=== PATIENT | male | born 1975 | race Caucasian/White ===

== ENCOUNTER 2019-08-04 16:58 | Day surgery (SDC) | payer OTHER ==
[2019-08-04] MEDS ORDERED: HYDROmorphone 1 MG/ML Syringe IVPUSH STA (19:20)
[2019-08-04] MEDS ORDERED: Ondansetron 4 MG/2 ML SDV IVPUSH ONE ×2 (19:20→22:14)
--- NOTE | 2019-08-04 19:25 | EDM.PDOC ---
ED HPI GENERAL MEDICAL PROBLEM - General Chief Complaint: Gastrointestinal Problem Stated Complaint: LOW ABDOMINAL PAIN SENT FROM [facility] Seen by Provider: 08/04/19 19:03 Source of Information: Reports: Patient, Family () History Limitations: Reports: No Limitations - History of Present Illness INITIAL COMMENTS - FREE TEXT/NARRATIVE: Mr. Tyson is a very pleasant 44-year-old man with no significant past medical history, who states that he woke around 01:00 this morning with right lower quadrant pain. He states that it initially felt like "gas" however, over the course of the day, the pain has progressively gotten worse, and is stabbing in character. The pain is made worse with virtually any movement, including if I jiggle his gurney. He states that he feels best if he lies in a prone position. He states that his urination feels "different", but he denies dysuria , per se, and he denies urinary frequency or urgency. He states that he had nausea and emesis at 01:00, but none since. 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 He states that he has felt lightheaded when upright since 01:00 this morning, but not if he is supine. No recent fever, and the patient is afebrile here in the ED. No recent constipation or diarrhea. No prior similar symptoms. The patient states that he went to the [facility], where a CBC and CMP were obtained. The patient's CBC was completely normal. His CMP was remarkable for blood glucose elevated at 150, and AST slightly elevated at 57, with an ALT slightly elevated at 91, with the remainder of the CMP being unremarkable. The patient was then sent to the ED for further evaluation. The patient states that he took some ibuprofen today, which did not help. The patient's last oral solid food was around 10:00 this morning. The patient does not have a PCP. Right Lower Abdominal Pain Score (Numeric/FACES): 9 - Related Data Allergies Allergy/AdvReac Type Severity Reaction Status Date / Time No Known Allergies Allergy Verified 08/04/19 17:10 Home Meds: Home Meds . [No Known Home Meds] 08/04/19 [History] Past Medical History - Past Surgical History HEENT Surgical History: Reports: Oral Surgery (3 wisdom teeth extracted) Neurological Surgical History: Reports: C-Spine (C5-C6 ACDF) Social & Family History - Tobacco Use Smoking Status *Q: Former Smoker Tobacco Use Within Last Twelve Months: Smokeless Tobacco (chews 1 can/day) Years of Tobacco use: 22 Packs/Tins Daily: 1 Month/Year Tobacco Last Used: Quit 2013 - Caffeine Use Caffeine Use: Reports: Coffee - Alcohol Use Alcohol Use History: Yes Alcohol Use Frequency: Socially - Recreational Drug Use Recreational Drug Use: No - Living Situation & Occupation Living situation: Reports: , with Spouse, with Family (2 kids) Occupation: Employed ([employer]) ED ROS GENERAL - Review of Systems Review Of Systems: ROS reveals no pertinent complaints other than HPI. ED EXAM, GI/ABD - Physical Exam Exam: See Below Exam Limited By: No Limitations General Appearance: Alert, WD/WN, No Apparent Distress Eyes: Bilateral: Normal Appearance, EOMI Ears: Normal External Exam, Hearing Grossly Normal Nose: Normal Inspection Throat/Mouth: Normal Inspection, Normal Lips, Normal Voice, No Airway Compromise Head: Atraumatic, Normocephalic Neck: Normal Inspection, Full Range of Motion Respiratory/Chest: No Respiratory Distress, Lungs Clear, Normal Breath Sounds, No Accessory Muscle Use Cardiovascular: Normal Peripheral Pulses, No Edema, No Gallop, No JVD, No Murmur , No Rub, Tachycardia (regular) GI/Abdominal Exam: Soft, No Organomegaly, No Distention, No Abnormal Bruit, No Mass, Tender (right lower quadrant only. Nontender elsewhere, however, Rovsing sign is present.), Abnormal Bowel Sounds (diminished/rare) (Male) Exam: Deferred Rectal (Males) Exam: Deferred Back Exam: Normal Inspection, Full Range of Motion, CVA Tenderness (R) (mild; percussion primarily induces pain in the right lower quadrant). No: CVA Tenderness (L) Extremities: Normal Inspection, Normal Range of Motion, No Pedal Edema, Normal Capillary Refill Neurological: Alert, Oriented, Normal Cognition, No Motor/Sensory Deficits Psychiatric: Normal Affect Skin Exam: Warm, Dry, Intact, Normal Color, No Rash Course - Vital Signs Last Recorded V/S: Last Vital Signs Temp 37.0 C 08/04/19 17:08 Pulse 117 H 08/04/19 17:08 Resp 20 08/04/19 17:08 BP 136/96 H 08/04/19 17:08 Pulse Ox 95 08/04/19 17:08 - Orders/Labs/Meds Orders: Active Orders 24 hr Category Date Time Status Peripheral IV Care [RC] . DIRECTED Care 08/04/19 19:00 Active Sodium Chloride 0.9% [Normal Saline] 1,000 ml Med 08/04/19 19:30 Active IV ASDIRECTED Sodium Chloride 0.9% [Saline Flush] Med 08/04/19 19:30 Active 10 ml FLUSH ASDIRECTED Medication Orders Sodium Chloride (Normal Saline) 1,000 mls @ 150 mls/hr IV ASDIRECTED CIELO Last Admin: 08/04/19 19:33 Dose: 150 mls/hr Sodium Chloride (Saline Flush) 10 ml FLUSH ASDIRECTED [facility]O Last Admin: 08/04/19 20:40 Dose: 10 ml Labs: Laboratory Tests 08/04/19 Range/Units 19:37 Urine Color Yellow (Yellow) Urine Appearance Clear (Clear) Urine pH 6.0 (5.0-8.0) Ur Specific [place] 1.025 (1.005-1.030) Urine Protein Negative (Negative) Urine Glucose (UA) Negative (Negative) Urine Ketones Negative (Negative) Urine Occult Blood Negative (Negative) Urine Nitrite Negative (Negative) Urine Bilirubin Negative (Negative) Urine Urobilinogen 0.2 (0.2-1.0) Ur Leukocyte Esterase Negative (Negative) Urine RBC 0-5 (0-5) /hpf Urine WBC 0-5 (0-5) /hpf Ur Squamous Epith Cells 0-5 (0-5) /hpf Urine Bacteria Occasional (FEW) /hpf Urine Mucus Moderate H (FEW) /hpf Meds: Medications Generic Name Dose Route Start Last Admin Trade Name Freq PRN Reason Stop Dose Admin Sodium Chloride 1,000 mls @ 150 mls/hr 08/04/19 19:30 08/04/19 19:33 Normal Saline IV 150 mls/hr ASDIRECTED CIELO Administration Sodium Chloride 10 ml 08/04/19 19:30 08/04/19 20:40 Saline Flush FLUSH 10 ml ASDIRECTED CIELO Administration Discontinued Medications Generic Name Dose Route Start Last Admin Trade Name Freq PRN Reason Stop Dose Admin Diatrizoate Meglum/Diatrizoate Sod 120 ml 08/04/19 19:28 08/04/19 20:40 Gastrografin 37% PO 08/04/19 19:29 120 ml ONETIME ONE Administration Hydromorphone HCl 1 mg 08/04/19 19:20 08/04/19 19:34 Dilaudid IVPUSH 08/04/19 19:21 1 mg ONETIME STA Administration Hydromorphone HCl 1 mg 08/04/19 21:30 08/04/19 21:39 Dilaudid IVPUSH 08/04/19 21:31 1 mg ONETIME ONE Administration Ertapenem 1 gm/ Sodium 50 mls @ 100 mls/hr 08/04/19 21:25 08/04/19 21:39 Chloride IV 08/04/19 21:54 100 mls/hr ONETIME STA Administration Iopamidol 100 ml 08/04/19 19:28 08/04/19 20:40 Isovue-300 (61%) IVPUSH 08/04/19 19:29 100 ml ONETIME ONE Administration Ondansetron HCl 4 mg 08/04/19 19:20 08/04/19 19:34 Zofran IVPUSH 08/04/19 19:21 4 mg ONETIME ONE Administration Ondansetron HCl 4 mg 08/04/19 22:14 08/04/19 22:18 Zofran IVPUSH 08/04/19 22:15 4 mg ONETIME ONE Administration - Re-Assessments/Exams Free Text/Narrative Re-Assessment/Exam: 08/04/19 19:21 The patient's history is somewhat ambiguous, but his physical exam is very compelling for appendicitis. The triage nurse ordered a repeat CBC and CMP, but because the patient had both drawn at the [facility] just prior to coming to the ED, and I have those results, I have canceled those orders. I added a urinalysis; I doubt this is a UTI, but I just want to be sure, and a CT of his abdomen and pelvis with oral and IV contrast. In the meantime, the patient will be given Dilaudid, Zofran, and IV fluid. 08/04/19 21:19 CT of the abdomen and pelvis with oral and IV contrast is read by Dr. Vernon as: 1. Appendix is seen and measured at the upper limits of normal in size but at this point shows no surrounding inflammatory change. Current findings could be normal or represent very early appendicitis. Close clinical follow-up is recommended with consideration for repeat white count in 12 hours. 2. Contrast within the distal esophagus compatible with reflux. 3. No additional abnormality is seen on CT study of the abdomen and pelvis. 08/04/19 21:[address] Lyon at 21:22. He would like me to give the patient 1 g of Invanz, then place him into observation. The patient is to be kept nothing by mouth. I will order IV fluid, some Dilaudid as needed, and Zofran as needed. Dr. Lyon will see the patient in the morning, for consideration for appendectomy. 08/04/19 21:29 The above recommendation was discussed with the patient and his . He is agreeable to coming in. Departure - Departure Time of Disposition: 21:30 Disposition: Refer to Observation Condition: Fair Clinical Impression: Acute appendicitis - Discharge Information *PRESCRIPTION DRUG MONITORING PROGRAM REVIEWED*: Not Applicable *COPY OF PRESCRIPTION DRUG MONITORING REPORT IN PATIENT SKY: Not Applicable - My Orders Last 24 Hours: My Active Orders 08/04/19 19:00 Peripheral IV Care [RC] . DIRECTED 08/04/19 19:30 Sodium Chloride 0.9% [Normal Saline] 1,000 ml IV ASDIRECTED Sodium Chloride 0.9% [Saline Flush] 10 ml FLUSH ASDIRECTED - Assessment/Plan Last 24 Hours: My Active Orders 08/04/19 19:00 Peripheral IV Care [RC] . DIRECTED 08/04/19 19:30 Sodium Chloride 0.9% [Normal Saline] 1,000 ml IV ASDIRECTED Sodium Chloride 0.9% [Saline Flush] 10 ml FLUSH ASDIRECTED
[2019-08-04] MEDS ORDERED: Diatrizoate Meglumine/Diatrizoate Sodium 37% 120 ML Bottle PO ONE (19:28)
[2019-08-04] MEDS ORDERED: Iopamidol 612 MG/ML 100 ML Bottle IVPUSH ONE (19:28)
[2019-08-04] MEDS ORDERED: Sodium Chloride 0.9% 10 ML Syringe FLUSH SCH (19:30)
[2019-08-04] MEDS: Sodium Chloride 0.9% 1,000 ML IV SCH (19:33)
--- NOTE | 2019-08-04 21:11 | CT ---
CT abdomen and pelvis Technique: Multiple axial sections were obtained from above the dome of the diaphragm inferiorly through the pubic symphysis. Intravenous and oral contrast was utilized. Delayed images were also obtained through the bladder. Comparison: No previous abdominal imaging. Findings: Visualized portions of the lung bases show nothing acute. Liver shows mild fatty infiltration but no focal abnormality is otherwise seen. Contrast is noted within the distal esophagus compatible with reflux. Spleen appears normal in size. Pancreas is within normal limits. Kidneys show symmetric contrast enhancement without hydronephrosis or mass. Adrenal glands show no nodule. Gallbladder contains no calcified gallstones. Aorta shows atherosclerotic calcification which continues into the iliac vessels without aneurysm. No retroperitoneal adenopathy or mesenteric abnormalities are seen. No pelvic mass or adenopathy is seen. Appendix is seen and appears at the upper limits of normal in size but shows no surrounding inflammatory change to indicate definite appendicitis. Other portions of the abdomen and pelvis show no free fluid or inflammatory change. Delayed images shows contrast within the bladder. Bone window settings were reviewed which appear within normal limits for the patient's age. Impression: 1. Appendix is seen and measures at the upper limits of normal in size but at this point shows no surrounding inflammatory change. Current findings could be normal or represent very early appendicitis. Close clinical follow-up is recommended with consideration for repeat white blood count in 12 hours. 2. Contrast within the distal esophagus compatible with reflux. 3. No additional abnormality is seen on CT study of the abdomen and pelvis. Diagnostic code #3
[2019-08-04] MEDS ORDERED: Ertapenem 1 GM in Sodium Chloride 0.9% 50 ML IV STA (21:25)
[2019-08-04] MEDS ORDERED: HYDROmorphone 1 MG/ML Syringe IVPUSH ONE (21:30)
[2019-08-04] MEDS ORDERED: Ondansetron 4 MG/2 ML SDV IVPUSH PRN (23:20)
[2019-08-05] MEDS: HYDROmorphone 1 MG/ML Syringe IVPUSH PRN ×4 (00:32→07:22)
[2019-08-05] MEDS: Sodium Chloride 0.9% 1,000 ML IV SCH (02:41)
[2019-08-05] MEDS ORDERED: Lidocaine 1% 30 ML SDV ONE (07:39)
--- NOTE | 2019-08-05 07:40 | PCM.HP.2 ---
H&P History of Present Illness - General Date of Service: 08/05/19 Admit Problem/Dx: Admission Diagnosis/Problem Admission Diagnosis/Problem Appendicitis Source of Information: Patient History Limitations: Reports: No Limitations - History of Present Illness Onset of Symptoms: Reports: Gradual Symptom Onset Date: 08/03/19 Duration of Symptoms: Reports: Day(s): (2), Getting Worse Location: Reports: Abdomen (RLQ) Quality: Reports: Sharp Severity: Severe Improves with: Reports: None Worsens with: Reports: None Associated Symptoms: Reports: Loss of Appetite, Nausea/Vomiting Right Lower Abdominal Pain Score (Numeric/FACES): 9 - Related Data Allergies/Adverse Reactions: Allergies Allergy/AdvReac Type Severity Reaction Status Date / Time No Known Allergies Allergy Verified 08/04/19 17:10 Home Medications: Home Meds . [No Known Home Meds] 08/04/19 [History] Past Medical History HEENT History: Reports: Other (See Below) Other HEENT History: Wears glasses for driving only Musculoskeletal History: Reports: Arthritis, Other (See Below) Other Musculoskeletal History: To the area where the C5-C66 cervical fusion is Neurological History: Reports: None - Infectious Disease History Infectious Disease History: Reports: Chicken Pox - Past Surgical History HEENT Surgical History: Reports: Oral Surgery Neurological Surgical History: Reports: C-Spine, Other (See Below) Other Neurological Surgeries/Procedures: C 5-6 cervical fusion Musculoskeletal Surgical History: Reports: Other (See Below) Other Musculoskeletal Surgeries/Procedures:: C 5 and C6 cervical Fusion Social & Family History - Family History Family Medical History: Noncontributory - Tobacco Use Smoking Status *Q: Never Smoker Years of Tobacco use: 22 Packs/Tins Daily: 1 Month/Year Tobacco Last Used: Quit 2013 Second Hand Smoke Exposure: No - Caffeine Use Caffeine Use: Reports: Energy Drinks - Recreational Drug Use Recreational Drug Use: No - Living Situation & Occupation Living situation: Reports: , with Spouse, with Family (2 kids) Occupation: Employed ([employer]) H&P Review of Systems - Review of Systems: Review Of Systems: See Below General: Reports: Chills, Decreased Appetite HEENT: Reports: No Symptoms Pulmonary: Reports: No Symptoms Cardiovascular: Reports: No Symptoms Gastrointestinal: Reports: Abdominal Pain, Nausea, Vomiting Genitourinary: Reports: No Symptoms Musculoskeletal: Reports: No Symptoms Skin: Reports: No Symptoms Psychiatric: Reports: No Symptoms Neurological: Reports: No Symptoms Hematologic/Lymphatic: Reports: No Symptoms Immunologic: Reports: No Symptoms Exam - Exam Exam: See Below - Vital Signs Vital Signs: Last Vital Signs Temp 98.1 F 08/05/19 07:21 Pulse 96 08/05/19 07:21 Resp 14 08/05/19 07:21 BP 170/88 H 08/05/19 07:21 Pulse Ox 100 08/05/19 07:21 Weight: 81.692 kg - Exam General: Alert, Oriented, Cooperative, Moderate Distress HEENT: Conjunctiva Clear Lungs: Clear to Auscultation, Normal Respiratory Effort Cardiovascular: Regular Rate, Regular Rhythm, Normal S1, Normal S2 GI/Abdominal Exam: Soft, No Organomegaly, No Distention, No Abnormal Bruit, Tender (RLQ), Other (small left groin hernia, non-tender, reducible. No right sided hernias) - Patient Data Lab Results Last 24 hrs: Laboratory Results - last 24 hr 08/04/19 Range/Units 19:37 Urine Color Yellow (Yellow) Urine Appearance Clear (Clear) Urine pH 6.0 (5.0-8.0) Ur Specific [place] 1.025 (1.005-1.030) Urine Protein Negative (Negative) Urine Glucose (UA) Negative (Negative) Urine Ketones Negative (Negative) Urine Occult Blood Negative (Negative) Urine Nitrite Negative (Negative) Urine Bilirubin Negative (Negative) Urine Urobilinogen 0.2 (0.2-1.0) Ur Leukocyte Esterase Negative (Negative) Urine RBC 0-5 (0-5) /hpf Urine WBC 0-5 (0-5) /hpf Ur Squamous Epith Cells 0-5 (0-5) /hpf Urine Bacteria Occasional (FEW) /hpf Urine Mucus Moderate H (FEW) /hpf Problem List Initiated/Reviewed/Updated: No Orders Last 24hrs: Active Orders 24 hr Category Date Time Status Admission Status [Patient Status] [ADT] Routine ADT 08/04/19 22:07 Active Peripheral IV Care [RC] Q2H Care 08/04/19 19:00 Active Up ad Maeve [RC] BID Care 08/04/19 23:18 Active NPO After Midnight [Nothing per Oral After Midnight Diet 08/05/19 Breakfast Active Diet] [DIET] HYDROmorphone [Dilaudid] Med 08/04/19 23:19 Active 1 mg IVPUSH Q2H PRN Ondansetron [Zofran] Med 08/04/19 23:20 Active 4 mg IVPUSH Q6H PRN Sodium Chloride 0.9% [Normal Saline] 1,000 ml Med 08/04/19 19:30 Active IV ASDIRECTED Sodium Chloride 0.9% [Saline Flush] Med 08/04/19 19:30 Active 10 ml FLUSH ASDIRECTED Schedule Procedure [COMM] Stat Oth 08/05/19 07:30 Ordered Code Status [Resuscitation Status] Routine Resus Stat 08/04/19 23:19 Ordered Medication Orders Hydromorphone HCl (Dilaudid) 1 mg IVPUSH Q2H PRN PRN Reason: Pain Last Admin: 08/05/19 07:22 Dose: 1 mg Admin: 08/05/19 04:43 Dose: 1 mg Admin: 08/05/19 02:39 Dose: 1 mg Admin: 08/05/19 00:32 Dose: 1 mg Sodium Chloride (Normal Saline) 1,000 mls @ 150 mls/hr IV ASDIRECTED [facility] Last Admin: 08/05/19 02:41 Dose: 150 mls/hr Infusion: 08/05/19 02:14 Dose: 150 mls/hr Admin: 08/04/19 19:33 Dose: 150 mls/hr Ondansetron HCl (Zofran) 4 mg IVPUSH Q6H PRN PRN Reason: Nausea Last Admin: 08/05/19 07:22 Dose: 4 mg Sodium Chloride (Saline Flush) 10 ml FLUSH ASDIRECTED [facility] Last Admin: 08/04/19 20:40 Dose: 10 ml Assessment/Plan Comment:: The patient has early acute appendicitis. He is still symptomatic with RLQ pain , nausea and vomiting. I recommended proceeding with appendectomy. I discussed with the patient Risks, benefits and alternatives. The patient had a chance to discuss options with his and decided to proceed with surgery. Informed consent obtained.
[2019-08-05] MEDS ORDERED: Ondansetron 4 MG/2 ML SDV ONE (07:47)
[2019-08-05] MEDS ORDERED: Rocuronium 50 MG/5 ML Vial ONE (07:47)
[2019-08-05] MEDS ORDERED: Succinylcholine/Normal Saline 100 MG/5 ML Syringe ONE (07:47)
[2019-08-05] MEDS ORDERED: Lidocaine 1% 4 ML ONE (07:47)
[2019-08-05] MEDS ORDERED: Lactated Ringers 1,000 ML ONE ×2 (07:47→09:11)
[2019-08-05] MEDS ORDERED: Dexamethasone 4 MG/ML 5 ML MDV ONE (07:48)
[2019-08-05] MEDS ORDERED: Midazolam 1 MG/ML 2 ML SDV ONE (07:48)
[2019-08-05] MEDS ORDERED: fentaNYL 250 MCG/5 ML SDV ONE (07:48)
[2019-08-05] MEDS ORDERED: Propofol 200 MG/20 ML SDV ONE ×2 (07:48→09:11)
[2019-08-05] MEDS ORDERED: Neostigmine Methylsulfate 1 MG/ML 5 ML Syringe ONE (08:36)
[2019-08-05] MEDS ORDERED: Metoclopramide 10 MG/2 ML SDV ONE (08:39)
[2019-08-05] MEDS ORDERED: ePHEDrine/Normal Saline 25 MG/5 ML Syringe ONE (08:41)
--- NOTE | 2019-08-05 08:58 | PCM.PREANE ---
Preanesthetic Assessment - Anesthesia/Transfusion/Family Hx Anesthesia History: Prior Anesthesia Without Reaction Family History of Anesthesia Reaction: No Transfusion History: No Prior Transfusion(s) - Review of Systems General: Malaise Pulmonary: No Symptoms Cardiovascular: No Symptoms Gastrointestinal: Abdominal Pain, Nausea, Vomiting (Feels better currently. ) Neurological: No Symptoms Other: Reports: None (Previous C5-C6 ACDF. ) - Physical Assessment NPO Status Date: 08/04/19 NPO Status Time: 00:00 Vital Signs: Last Vital Signs Temp 36.7 C 08/05/19 07:21 Pulse 96 08/05/19 07:21 Resp 14 08/05/19 07:21 BP 170/88 H 08/05/19 07:21 Pulse Ox 100 08/05/19 07:21 Height: 1.8 m Weight: 81.692 kg ASA Class: 2 Mental Status: Alert & Oriented x3 Airway Class: Mallampati = 2 Dentition: Reports: Partial (Upper two front incisors. ), Broken Tooth/Teeth ( Chipped teeth noted. Crowding noted. ), Caries Thyro-Mental Finger Breadths: 2 Mouth Opening Finger Breadths: 3 ROM/Head Extension: Full Lungs: Clear to Auscultation, Normal Respiratory Effort Cardiovascular: Regular Rate, Regular Rhythm - Lab Values: Laboratory Last Values Urine Color Yellow (Yellow) 08/04/19 19:37 Urine Appearance Clear (Clear) 08/04/19 19:37 Urine pH 6.0 (5.0-8.0) 08/04/19 19:37 Ur Specific [place] 1.025 (1.005-1.030) 08/04/19 19:37 Urine Protein Negative (Negative) 08/04/19 19:37 Urine Glucose (UA) Negative (Negative) 08/04/19 19:37 Urine Ketones Negative (Negative) 08/04/19 19:37 Urine Occult Blood Negative (Negative) 08/04/19 19:37 Urine Nitrite Negative (Negative) 08/04/19 19:37 Urine Bilirubin Negative (Negative) 08/04/19 19:37 Urine Urobilinogen 0.2 (0.2-1.0) 08/04/19 19:37 Ur Leukocyte Esterase Negative (Negative) 08/04/19 19:37 Urine RBC 0-5 /hpf (0-5) 08/04/19 19:37 Urine WBC 0-5 /hpf (0-5) 08/04/19 19:37 Ur Squamous Epith Cells 0-5 /hpf (0-5) 08/04/19 19:37 Urine Bacteria Occasional /hpf (FEW) 08/04/19 19:37 Urine Mucus Moderate /hpf (FEW) H 08/04/19 19:37 - Allergies Allergies/Adverse Reactions: Allergies Allergy/AdvReac Type Severity Reaction Status Date / Time No Known Allergies Allergy Verified 08/04/19 17:10 - Anesthesia Plan Pre-Op Medication Ordered: Other (Recieved Dilaudid and Zofran at 0722 per MAR. ) - Acknowledgements Anesthesia Type Planned: General Anesthesia Pt an Appropriate Candidate for the Planned Anesthesia: Yes Alternatives and Risks of Anesthesia Discussed w Pt/Guardian: Yes Pt/Guardian Understands and Agrees with Anesthesia Plan: Yes PreAnesthesia Questionnaire HEENT History: Reports: Other (See Below) Other HEENT History: Wears glasses for driving only Musculoskeletal History: Reports: Arthritis, Other (See Below) Other Musculoskeletal History: To the area where the C5-C66 cervical fusion is Neurological History: Reports: None - Infectious Disease History Infectious Disease History: Reports: Chicken Pox - Past Surgical History HEENT Surgical History: Reports: Oral Surgery Neurological Surgical History: Reports: C-Spine, Other (See Below) Other Neurological Surgeries/Procedures: C 5-6 cervical fusion Musculoskeletal Surgical History: Reports: Other (See Below) Other Musculoskeletal Surgeries/Procedures:: C 5 and C6 cervical Fusion - SUBSTANCE USE Smoking Status *Q: Never Smoker Tobacco Use Within Last Twelve Months: Snuff/Dip Second Hand Smoke Exposure: No Recreational Drug Use History: No - HOME MEDS Home Medications: Home Meds . [No Known Home Meds] 08/04/19 [History] - CURRENT (IN HOUSE) MEDS Current Meds: Current Medications Hydromorphone HCl (Dilaudid) 1 mg IVPUSH Q2H PRN PRN Reason: Pain Last Admin: 08/05/19 07:22 Dose: 1 mg Sodium Chloride (Normal Saline) 1,000 mls @ 150 mls/hr IV ASDIRECTED [facility] Last Admin: 08/05/19 02:41 Dose: 150 mls/hr Ondansetron HCl (Zofran) 4 mg IVPUSH Q6H PRN PRN Reason: Nausea Last Admin: 08/05/19 07:22 Dose: 4 mg Sodium Chloride (Saline Flush) 10 ml FLUSH ASDIRECTED [facility]O Last Admin: 08/04/19 20:40 Dose: 10 ml Discontinued Medications Dexamethasone (Dexamethasone) Confirm Administered Dose 20 mg .ROUTE .STK-MED ONE Stop: 08/05/19 07:49 Diatrizoate Meglum/Diatrizoate Sod (Gastrografin 37%) 120 ml PO ONETIME ONE Stop: 08/04/19 19:29 Last Admin: 08/04/19 20:40 Dose: 120 ml Ephedrine Sulfate (Ephedrine In Ns) Confirm Administered Dose 25 mg .ROUTE .STK- MED ONE Stop: 08/05/19 08:42 Fentanyl (Sublimaze) Confirm Administered Dose 250 mcg .ROUTE .STK-MED ONE Stop: 08/05/19 07:49 Glycopyrrolate () Confirm Administered Dose 1 mg .ROUTE .STK-MED ONE Stop: 08/05/19 08:37 Hydromorphone HCl (Dilaudid) 1 mg IVPUSH ONETIME STA Stop: 08/04/19 19:21 Last Admin: 08/04/19 19:34 Dose: 1 mg Hydromorphone HCl (Dilaudid) 1 mg IVPUSH ONETIME ONE Stop: 08/04/19 21:31 Last Admin: 08/04/19 21:39 Dose: 1 mg Ertapenem 1 gm/ Sodium (Chloride) 50 mls @ 100 mls/hr IV ONETIME STA Stop: 08/04/19 21:54 Last Admin: 08/04/19 21:39 Dose: 100 mls/hr Lidocaine HCl (Xylocaine-Mpf 1%) Confirm Administered Dose 4 mls @ as directed .ROUTE .STK-MED ONE Stop: 08/05/19 07:48 Lactated Ringer's (Ringers, Lactated) Confirm Administered Dose 1,000 mls @ as directed .ROUTE .STK-MED ONE Stop: 08/05/19 07:48 Iopamidol (Isovue-300 (61%)) 100 ml IVPUSH ONETIME ONE Stop: 08/04/19 19:29 Last Admin: 08/04/19 20:40 Dose: 100 ml Lidocaine HCl (Xylocaine-Mpf 1%) Confirm Administered Dose 30 ml .ROUTE .STK- MED ONE Stop: 08/05/19 07:40 Metoclopramide HCl (Reglan) Confirm Administered Dose 10 mg .ROUTE .STK-MED ONE Stop: 08/05/19 08:40 Midazolam HCl (Versed 1 Mg/Ml) Confirm Administered Dose 2 mg .ROUTE .STK-MED ONE Stop: 08/05/19 07:49 Neostigmine Methylsulfate (Neostigmine) Confirm Administered Dose 5 mg .ROUTE .STK-MED ONE Stop: 08/05/19 08:37 Ondansetron HCl (Zofran) 4 mg IVPUSH ONETIME ONE Stop: 08/04/19 19:21 Last Admin: 08/04/19 19:34 Dose: 4 mg Ondansetron HCl (Zofran) 4 mg IVPUSH ONETIME ONE Stop: 08/04/19 22:15 Last Admin: 08/04/19 22:18 Dose: 4 mg Ondansetron HCl (Zofran) Confirm Administered Dose 4 mg .ROUTE .[facility]-MED ONE Stop: 08/05/19 07:48 Propofol (Diprivan 20 Ml) Confirm Administered Dose 400 mg .ROUTE .STK-MED ONE Stop: 08/05/19 07:49 Rocuronium [place] (Zemuron) Confirm Administered Dose 50 mg .ROUTE .ST-MED ONE Stop: 08/05/19 07:48 Succinylcholine Chloride (Succinylcholine In Ns Pf) Confirm Administered Dose 100 mg .ROUTE .STK-MED ONE Stop: 08/05/19 07:48
[2019-08-05] MEDS ORDERED: diphenhydrAMINE 50 MG/ML SDV IVPUSH PRN (08:59)
[2019-08-05] MEDS ORDERED: HYDROmorphone 0.5 MG/0.5 ML Syringe IVPUSH PRN (08:59)
[2019-08-05] MEDS ORDERED: Ketorolac 30 MG/ML SDV ONE (09:08)
--- NOTE | 2019-08-05 09:56 | PCM.POSTAN ---
POST ANESTHESIA ASSESSMENT - MENTAL STATUS Mental Status: Alert, Oriented - VITAL SIGNS Vital Signs: Last Vital Signs 0947 150/85 82 17 99% 98.3F - RESPIRATORY Respiratory Status: Respiratory Rate WNL, Airway Patent, O2 Saturation Stable, Supplemental Oxygen - CARDIOVASCULAR CV Status: Pulse Rate WNL, Blood Pressure Stable - GASTROINTESTINAL GI Status: No Symptoms - PAIN Pain Score: 0 - POST OP HYDRATION Hydration Status: Adequate & Stable
[2019-08-05] MEDS: fentaNYL 100 MCG/2 ML SDV IVPUSH PRN ×2 (09:57→10:07)
[2019-08-05] MEDS ORDERED: Acetaminophen/oxyCODONE 325-5 MG Tab PO PRN (12:50)
--- NOTE | 2019-08-05 14:06 | PCM48HPAN ---
Post Anesthesia Note - EVALUATION WITHIN 48HRS OF ANESTHETIC Vital Signs in Normal Range: Yes Patient Participated in Evaluation: Yes Respiratory Function Stable: Yes Airway Patent: Yes Cardiovascular Function Stable: Yes Hydration Status Stable: Yes Pain Control Satisfactory: Yes Nausea and Vomiting Control Satisfactory: Yes Mental Status Recovered: Yes Vital Signs: Last Vital Signs Temp 36.8 C 08/05/19 11:12 Pulse 94 08/05/19 11:16 Resp 16 08/05/19 11:12 BP 153/85 H 08/05/19 11:16 Pulse Ox 94 L 08/05/19 11:16
--- NOTE | 2019-08-09 08:14 | OR ---
DATE OF OPERATION: 08/05/2019 SURGEON: Laura Lyon MD PREOPERATIVE DIAGNOSIS: Acute appendicitis. POSTOPERATIVE DIAGNOSIS: Acute appendicitis.. OPERATION PERFORMED: Laparoscopic appendectomy. ANESTHESIA: General endotracheal. ESTIMATED BLOOD LOSS: 20 mL. URINE OUTPUT: Not measured. IV FLUIDS: 1000 mL. INDICATIONS AND CONSENT: Mr. Tyson is a 44-year-old male, who presented to the emergency department with 2 days of right lower abdominal pain associated with nausea and vomiting. The patient underwent workup including labs as well as CT scan, white count was normal, but the CT scan did not reveal early appendicitis. The patient was admitted to the hospital, given antibiotics. When I evaluated this patient this morning, the patient was still nauseous and had vomited, still having severe right lower quadrant abdominal pain, therefore, I discussed with the patient the option including antibiotics as well as operation to remove the appendix. After discussion with the patient's , the patient decided to proceed with appendectomy. Then, I went back and spoke with the patient, discussed the risks to the procedure including injury to the rest of the bowel with complications, infection, bleeding, reaction to medications, and the patient agreed to proceed with the procedure. Informed consent was obtained. DESCRIPTION OF PROCEDURE: The patient was taken to the operating room, placed on the operating room table in supine position. Following induction of general endotracheal anesthesia, no additional antibiotics were needed since the patient had received Invanz. Then the abdomen was prepped and draped in the usual sterile fashion. A formal time-out was performed prior to the set of the procedure. I began the procedure by accessing the abdomen through the kind of cutdown method in the infraumbilical aspect. Then Hever trocar was inserted, a 5/30 camera was placed. The abdomen was quickly inspected. There were no other abnormalities. Two additional 5 mm trocars were placed, one in the suprapubic area and another one in the left lower quadrant. Then using graspers, the appendix was found in the right lower quadrant. This appeared to inflamed. The bowel and tissue around the appendix were released, and the window was made at the appendiceal base, and MONTRELL stapler 45 staple blue load was used to transect the appendix at the appendiceal base, and then a white load was used to transect the mesoappendix. The appendix was placed in the EndoCatch bag and then the transection area was re-inspected with the suction eeg technician. All the clots were removed and appeared to be hemostatic. At this point, trocars were removed and the umbilical fascia was closed with 0-Vicryl stitches in a [id number] fashion, and then the skin at the 5-mm trocar and umbilical aspect was closed with 4-0 Monocryl stitch. Dermabond was placed. This marked the end of the procedure. At the end of the procedure, all instruments, sharps, and sponges were counted and found to be correct x2. The patient was awoken from anesthesia, extubated and taken to the PACU in stable condition. The plan is for the patient to recover and go home today. Followup with me in clinic in 2 weeks for postop check. MARGOT /[id number]
== END 2019-08-05 14:22 | disposition home or self-care (01) ==
LOC: JD.ED 16:58 → JD.MS 22:07 → UNDOADMOB 22:07 → JD.SDS 22:07 → JD.MS 22:07 → JD.SDS 08-05 14:22 → UNDODISOB 08-05 14:22
PROVIDERS: ATTEND Surgery
DX: K35.30 Acute appendicitis with localized peritonitis, without perforation or gangrene (principal); K38.8 Other specified diseases of appendix; K76.0 Fatty (change of) liver, not elsewhere classified; F17.220 Nicotine dependence, chewing tobacco, uncomplicated
CPT/HCPCS: 44970; 74177; 81001; 96361; 96365; 96375; 96376; 99285; A9270; J0330; J1100; J1170; J1335; J1885; J2001; J2250; J2405; J2704; J2710; J2765; J3010; J7040; J7050; J7120; Q9963; Q9967; 00840

== ENCOUNTER 2022-01-16 10:12 | Emergency (ER) | payer BC, OTHER ==
[2022-01-16] MEDS ORDERED: Sodium Chloride 0.9% 10 ML Syringe FLUSH PRN (11:21)
[2022-01-16] MEDS ORDERED: Ketorolac 30 MG/ML SDV IVPUSH ONE (11:21)
[2022-01-16] MEDS ORDERED: Acetaminophen/HYDROcodone 325-5 MG Tab PO ONE (13:31)
== END 2022-01-16 14:00 | disposition home or self-care (01) ==
LOC: JD.ED 10:12
DX: K40.90 Unilateral inguinal hernia, without obstruction or gangrene, not specified as recurrent (principal)
CPT/HCPCS: 36415; 74176; 80053; 81001; 83735; 85025; 96374; 99284; A9270; J1885

== ENCOUNTER 2022-01-28 10:17 | Emergency (ER) | payer BC ==
[2022-01-28] MEDS ORDERED: Sodium Chloride 0.9% 10 ML Syringe FLUSH PRN (10:43)
[2022-01-28] MEDS ORDERED: Sodium Chloride 0.9% 1,000 ML IV SCH (11:00)
[2022-01-28] MEDS ORDERED: Ondansetron 4 MG/2 ML SDV IVPUSH ONE (11:20)
[2022-01-28] MEDS ORDERED: Insulin Regular, Human 100 Units/ML 3 ML Vial SUBCUT ONE ×2 (11:20→12:40)
== END 2022-01-28 13:58 | disposition home or self-care (01) ==
LOC: JD.ED 10:17
DX: E11.65 Type 2 diabetes mellitus with hyperglycemia (principal); E78.00 Pure hypercholesterolemia, unspecified; I10 Essential (primary) hypertension; Z79.4 Long term (current) use of insulin; Z79.899 Other long term (current) drug therapy; Z72.0 Tobacco use
CPT/HCPCS: 36415; 80053; 82947; 85025; 96374; 99283; J1815; J2405; J7030; 99284

== ENCOUNTER 2024-05-14 20:54 | Emergency (ER) | payer SELFPAY ==
[2024-05-14 22:00] LABS: BASOPHILS ABSOLUTE AUTO 0.1 K/mm3 (0.0-0.2); BASOPHILS PERCENT AUTO 0.6 % (0.0-1.0); EOSINOPHILS ABSOLUTE AUTO 0.1 K/mm3 (0.0-0.4); EOSINOPHILS PERCENT AUTO 1.2 % (0.0-6.0); HEMATOCRIT 43.6 % (42.0-52.0); HEMOGLOBIN 15.3 gm/dl (14.0-18.0); IMMATURE GRAN ABSOLUTE AUTO 0.02 K/mm3 (0.00-0.05); IMMATURE GRAN PERCENT AUTO 0.3 % (0.0-0.4); LYMPHOCYTES ABSOLUTE AUTO 2.4 K/mm3 (1.0-4.8); LYMPHOCYTES PERCENT AUTO 30.7 % (24.0-44.0); MEAN CORPUSCULAR HEMOGLOBIN 31.1 pg (28.0-32.0); MEAN CORPUSCULAR HGB CONC 35.1 g/dl (32.0-36.0); MEAN CORPUSCULAR VOLUME 88.6 fl (83.0-99.0); MEAN PLATELET VOLUME 9.3 fl (9.4-12.4); MONOCYTES ABSOLUTE AUTO 0.6 K/mm3 (0.0-0.8); MONOCYTES PERCENT AUTO 8.3 % (0.0-8.0); NEUTROPHILS ABSOLUTE AUTO 4.5 K/mm3 (1.8-7.7); NEUTROPHILS PERCENT AUTO 58.9 % (41.0-71.0); PLATELET COUNT,PLT 182 K/mm3 (150-400); RED BLOOD CELL COUNT 4.92 M/mm3 (4.52-5.90); WHITE BLOOD CELL COUNT,WBC 7.71 K/mm3 (3.9-11.3)
[2024-05-14 22:22] LABS: A/G RATIO 0.9 (1-2); ALBUMIN 3.7 g/dl (3.4-5.0); ANION GAP 11.2 (5-15); BILIRUBIN TOTAL 0.5 mg/dL (0.2-1.0); BUN/CREATININE RATIO 9.2 (14-18); CALCIUM 9.2 mg/dL (8.5-10.1); CREATININE 1.2 mg/dL (0.7-1.3); EST CRCL DRUG DOSING (CG) 77.73 mL/min; POTASSIUM,K 3.2 mEq/L (3.5-5.1); PROTEIN TOTAL,TP 7.8 g/dl (6.4-8.2)
[2024-05-14] MEDS: LORazepam 2 MG/ML SDV IVPUSH ONE (22:37)
[2024-05-14] MEDS: ALPRAZolam 1 MG Tab PO ONE (22:47)
[2024-05-14 22:54] LABS: APPEARANCE,URINE CLEAR (Clear); BILIRUBIN,URINE NEGATIVE (Negative); COLOR,URINE YELLOW (Yellow); GLUCOSE,URINE NEGATIVE (Negative); KETONES,URINE NEGATIVE (Negative); LEUKOCYTE ESTERASE,URINE 1+ (Negative); NITRITE,URINE NEGATIVE (Negative); OCCULT BLOOD,URINE NEGATIVE (Negative); PROTEIN,URINE TRACE (Negative); UROBILINOGEN,URINE 0.2 (0.2-1.0)
[2024-05-14 23:15] LABS: RBC,URINE 0-5 /hpf (0-5)
[2024-05-14 23:16] LABS: BACTERIA,URINE FEW /hpf (FEW); MUCUS,URINE MODERATE /hpf (FEW); SQUAMOUS EPITHELIAL CELLS,UR 0-5 /hpf (0-5)
== END 2024-05-14 23:20 | disposition home or self-care (01) ==
LOC: JD.ED 20:54
DX: I10 Essential (primary) hypertension (principal); E78.2 Mixed hyperlipidemia; E11.9 Type 2 diabetes mellitus without complications; F41.9 Anxiety disorder, unspecified
CPT/HCPCS: 36415; 71046; 80053; 81001; 82947; 83735; 84484; 85025; 87086; 93005; A9270; 99285

== ENCOUNTER 2024-06-10 10:37 | Emergency (ER) | payer SELFPAY ==
[2024-06-10 11:16] LABS: BASOPHILS ABSOLUTE AUTO 0.1 K/mm3 (0.0-0.2); BASOPHILS PERCENT AUTO 0.9 % (0.0-1.0); EOSINOPHILS ABSOLUTE AUTO 0.2 K/mm3 (0.0-0.4); EOSINOPHILS PERCENT AUTO 2.3 % (0.0-6.0); HEMATOCRIT 44.9 % (42.0-52.0); HEMOGLOBIN 15.7 gm/dl (14.0-18.0); IMMATURE GRAN ABSOLUTE AUTO 0.01 K/mm3 (0.00-0.05); IMMATURE GRAN PERCENT AUTO 0.2 % (0.0-0.4); LYMPHOCYTES ABSOLUTE AUTO 2.7 K/mm3 (1.0-4.8); LYMPHOCYTES PERCENT AUTO 41.2 % (24.0-44.0); MEAN CORPUSCULAR HEMOGLOBIN 31.2 pg (28.0-32.0); MEAN CORPUSCULAR VOLUME 89.3 fl (83.0-99.0); MEAN PLATELET VOLUME 9.6 fl (9.4-12.4); MONOCYTES ABSOLUTE AUTO 0.6 K/mm3 (0.0-0.8); NEUTROPHILS PERCENT AUTO 46.4 % (41.0-71.0); PLATELET COUNT,PLT 197 K/mm3 (150-400); RED BLOOD CELL COUNT 5.03 M/mm3 (4.52-5.90); WHITE BLOOD CELL COUNT,WBC 6.55 K/mm3 (3.9-11.3)
[2024-06-10] MEDS: Acetaminophen 325 MG Tab PO ONE (11:32)
[2024-06-10] MEDS: LORazepam 1 MG Tab PO ONE (11:32)
[2024-06-10] MEDS: Lactated Ringers 1,000 ML IV ONE (11:33)
[2024-06-10 11:35] LABS: INR 1.02; PROTHROMBIN TIME 10.8 SECONDS (9.7-12.0)
[2024-06-10 11:36] LABS: PTT,PARTIAL THROMBOPLSTIN TIME 25.4 SECONDS (21.7-31.4)
[2024-06-10 11:44] LABS: ANION GAP 12.2 (5-15); BILIRUBIN TOTAL 0.4 mg/dL (0.2-1.0); CALCIUM 9.4 mg/dL (8.5-10.1); EST CRCL DRUG DOSING (CG) 96.22 mL/min; MAGNESIUM 1.9 mg/dL (1.8-2.4); POTASSIUM,K 4.2 mEq/L (3.5-5.1); PROTEIN TOTAL,TP 8.2 g/dl (6.4-8.2)
== END 2024-06-10 14:06 | disposition home or self-care (01) ==
LOC: JD.ED 10:37
DX: R07.89 Other chest pain (principal); F41.9 Anxiety disorder, unspecified; I10 Essential (primary) hypertension; E78.00 Pure hypercholesterolemia, unspecified; E11.9 Type 2 diabetes mellitus without complications; Z79.84 Long term (current) use of oral hypoglycemic drugs; Z79.899 Other long term (current) drug therapy; Z86.16 Personal history of COVID-19
CPT/HCPCS: 36415; 71045; 80053; 83735; 83880; 84484; 85025; 85610; 85730; 93005; 96360; 99285; A9270; J7120; 93010; 99284